=== PATIENT | male | born 1980 | race Caucasian/White ===

== ENCOUNTER 2023-01-21 18:29 | Emergency (ER) | payer OTHER, SELFPAY ==
[2023-01-21 18:32] VITALS: BP 147/108; PULSE 112; RESP 18; TEMP 36.7; O2SAT 97; BMI 33.0
--- NOTE | 2023-01-21 18:59 | ED.WOUNDLAC ---
HPI - Wound/Laceration General Chief Complaint: Laceration/Wound Stated Complaint: Lac/wound lower abdomen Time Seen by Provider: 01/21/23 18:30 History of Present Illness HPI narrative: This 43-year-old male comes in with a laceration on his lower abdomen that occurred about 8 hours prior to arrival. He states that he was on a ladder and coming down from it when he slipped and his abdomen was caught on a gusset plate. He has a curvilinear 4 cm laceration on his abdomen just below and a bit lateral of the umbilicus. His tetanus status is up-to-date. Related Data Home Medications Medication Instructions Recorded Confirmed atorvastatin 20 mg tablet 20 mg PO QPM 01/21/23 01/21/23 lisinopril 20 mg tablet 20 mg PO DAILY 01/21/23 01/21/23 Previous Rx's Medication Instructions Recorded cephalexin 500 mg capsule 500 mg PO TID #10 caps 01/21/23 Allergies Allergy/AdvReac Type Severity Reaction Status Date / Time No Known Drug Allergies Allergy Verified 01/21/23 18:35 Review of Systems Status of ROS: Reports: 10 or more systems reviewed and unremarkable except as noted in History and below Narrative: Constitutional: No fevers, no weight gain or loss. Eyes: No discharge. No vision changes. HENT: No congestion, no sore throat, no ear pain. Cardiovascular: No chest pain, no palpitations. Respiratory: No shortness of breath, no wheezes, no cough. Gastrointestinal: No abdominal pain, no vomiting, no diarrhea. Genitourinary: No dysuria, no hematuria. Musculoskeletal: Normal range of motion. Skin: No rashes, no pruritis. Abdominal laceration as described above. Neurological: No dizziness, weakness, sensory change, speech change. Endo/Heme/Allergies: No bruising or bleeding. No polydipsia. Pysch: no suicidality, no anxiety, no insomnia. All other systems reviewed and are negative. Exam Narrative: Exam Narrative: Constitutional: Well-developed, well-nourished, no acute distress. HEENT: Normocephalic, atraumatic. Neck: Normal range of motion. Nontender. Supple. Heart: Intact distal pulses. Lungs: No chest discomfort. No wheezes, rhonchi, or rales. Abdomen: 4 cm curvilinear laceration in the lower abdomen. Back: Normal range of motion. Extremities: Normal range of motion. No injury. Skin: Intact. No rash. Warm. No erythema or pallor. Neurologic: No altered sensation. No weakness. Alert and oriented. Psychiatric: No suicidality. No anxiety or depression. No insomnia. Nursing notes and vitals signs are reviewed. Const: Vital Signs, click to edit/add: Vital Signs - 24 hr 01/21/23 18:32 Temperature 98.1 F Pulse Rate [Pulse Oximeter] 112 H Respiratory Rate 18 Blood Pressure [Ri ght Upper Arm] 147/108 H Pulse Oximetry 97 Oxygen Delivery Me thod Room Air Course Vital Signs Vital signs: Initial Vital Signs Temperature 98.1 F 01/21/23 18:32 Temperature Source Temporal Artery Scan 01/21/23 18:32 Pulse Rate 112 H 01/21/23 18:32 Respiratory Rate 18 01/21/23 18:32 Blood Pressure 147/108 H 01/21/23 18:32 Blood Pressure Mean 121 H 01/21/23 18:32 Blood Pressure Position Supine 01/21/23 18:32 Pulse Oximetry 97 01/21/23 18:32 Oxygen Delivery Method Room Air 01/21/23 18:32 Vital Signs Temperature 98.1 F 01/21/23 18:32 Pulse Rate 112 H 01/21/23 18:32 Respiratory Rate 18 01/21/23 18:32 Blood Pressure 147/108 H 01/21/23 18:32 Pulse Oximetry 97 01/21/23 18:32 Oxygen Delivery Method Room Air 01/21/23 18:32 Temperature 98.1 F 01/21/23 18:32 Pulse Rate 112 H 01/21/23 18:32 Respiratory Rate 18 01/21/23 18:32 Blood Pressure 147/108 H 01/21/23 18:32 Pulse Oximetry 97 01/21/23 18:32 Oxygen Delivery Method Room Air 01/21/23 18:32 MDM - Wound/Laceration MDM Narrative Medical decision making narrative: This patient comes in with a laceration to his abdomen that would benefit from suture repair. After anesthesia with 2% lidocaine I placed 6 sutures in interrupted fashion using 3.0 Ethilon suture. This approximated the wound edges nicely. Instructions were given regarding wound care and the need to return for suture removal in 7-10 days. I did prescribed 10 tablets of Keflex in the off chance that an infection could develop. He does have some erythema around this area. Discharge Plan Discharge Clinical Impression: Laceration Patient Disposition: Home, Self-Care Condition: Improved Additional Instructions: Take medication as prescribed. Use [id number] medicines also as needed and directed. Follow-up with clinic urgent care in 7-10 days for suture removal. Prescriptions: New cephalexin 500 mg capsule 500 mg PO TID Qty: 10 0RF No Action atorvastatin 20 mg tablet 20 mg PO QPM lisinopril 20 mg tablet 20 mg PO DAILY Stand Alone Forms: [employer] Info Instructions
== END 2023-01-21 19:12 | disposition home or self-care (01) ==
PROVIDERS: Emergency Provider Emergency Medicine Emergency Medical Services
DX: S31.119A Laceration without foreign body of abdominal wall, unspecified quadrant without penetration into peritoneal cavity, initial encounter (principal); W26.9XXA Contact with unspecified sharp object(s), initial encounter
CPT/HCPCS: 12002; 99283; 99284